=== PATIENT | male | born 1970 | race Caucasian/White ===

== ENCOUNTER 2018-06-30 20:23 | Emergency (ER) | payer MEDICAID, OTHER ==
[2018-06-30] MEDS: predniSONE 20 MG TAB PO ×2 (20:53)
[2018-06-30] MEDS: CLINDAMYCIN 150 MG CAP PO ×2 (20:53)
[2018-06-30] MEDS: NORCO, ANEXSIA 5/325MG TABLET (HYDROcodone/ACETAMINOPHEN) PO ×2 (20:53)
== END 2018-06-30 21:19 | disposition home or self-care (01) ==
LOC: M ED 20:23
DX: L23.7 Allergic contact dermatitis due to plants, except food (principal); K02.9 Dental caries, unspecified; I10 Essential (primary) hypertension; F17.220 Nicotine dependence, chewing tobacco, uncomplicated; Z88.0 Allergy status to penicillin; Z79.899 Other long term (current) drug therapy
CPT/HCPCS: 99282